=== PATIENT | female | born 1965 ===

== ENCOUNTER → 2018-07-24 | Outpatient (CLI) | payer SELFPAY | LOC: C.RADIC 09:23 ==

== ENCOUNTER → 2018-07-24 | Outpatient (CLI) | payer SELFPAY | LOC: C.RADIC 09:39 ==

== ENCOUNTER 2018-08-03 09:24 | Outpatient (CLI) | payer SELFPAY | END 2018-08-03 09:25 | disposition home or self-care (01) | LOC: C.CARD 09:24 | DX: R07.9 Chest pain, unspecified (principal) ==

== ENCOUNTER 2018-08-11 22:12 | Emergency (ER) | payer SELFPAY ==
[2018-08-11 22:12] VITALS: BMI 25.8
[2018-08-11 22:25] VITALS: O2SAT 99
--- NOTE | 2018-08-11 23:16 | C.PDOC ---
History Of Present Illness 53 year old female, whose past medical history includes hypertension, presents to the ED for evaluation of a mild headache which began today. Patient states she checked her blood pressure using home monitor and found it was elevated. Patient became concerned and took one 81mg tablet of Aspirin two hours prior to ED arrival. Patient states she underwent a normal cardiac workup, consisting of echocardiogram and stress test, in July 2018. Patient denies nausea, vomiting, extremity numbness/weakness. Time Seen by Provider: 08/11/18 22:56 Chief Complaint (Nursing): Headache History Per: Patient History/Exam Limitations: no limitations Onset/Duration Of Symptoms: Hrs Current Symptoms Are (Timing): Still Present Past Medical History Reviewed: Historical Data, Nursing Documentation, Vital Signs Vital Signs: Last Vital Signs Temp 97.5 F L 08/11/18 22:21 Pulse 71 08/11/18 22:21 Resp 22 08/11/18 22:21 BP 190/104 H 08/11/18 22:21 Pulse Ox 99 08/11/18 22:21 - Medical History PMH: HTN Denies: Chronic Kidney Disease Surgical History: Appendectomy Family History: States: Unknown Family Hx - Social History Hx Alcohol Use: No Hx Substance Use: No Review Of Systems Cardiovascular: Positive for: Other (elevated blood pressure ) Gastrointestinal: Negative for: Nausea, Vomiting Neurological: Positive for: Headache. Negative for: Weakness, Numbness Physical Exam - Physical Exam Appears: Non-toxic, No Acute Distress, Other (smiling, joking) Skin: Normal Color, Warm, Dry Head: Atraumatic, Normacephalic Eye(s): bilateral: Normal Inspection, PERRL, EOMI, Other (no photophobia) Oral Mucosa: Moist Neck: Normal ROM, Supple Chest: Symmetrical, No Deformity, No Tenderness Cardiovascular: Rhythm Regular, No Murmur Respiratory: Normal Breath Sounds, No Rales, No Rhonchi, No Wheezing Extremity: Normal ROM, Capillary Refill (less than 2 seconds ) Neurological/Psych: Oriented x3, Normal Speech, Normal Cognition ED Course And Treatment O2 Sat by Pulse Oximetry: 99 (on RA) Pulse Ox Interpretation: Normal Progress Note: EKG ordered and reviewed. Motrin PO and Norvasc PO given. Medical Decision Making Medical Decision Making: mild GOMEZ bp 150/90 on eval no cardiac issues normal card stress/echo 3/19 normal EKG defer repeat w/u < 2 weeks ok for opt f/u. Disposition Doctor Will See Patient In The: Office Counseled Patient/Family Regarding: Studies Performed, Diagnosis - Disposition Referrals: [facility] [Outside] [facility] [Outside] [facility] [Outside] [facility] [Outside] Disposition: HOME/ ROUTINE Disposition Time: 23:16 Condition: GOOD Additional Instructions: sigue jonathan [facility] para la pression jolly Sigue con la [facility] Recibio Amlodipina 5 mg y Ibuprofeno 600 mg po via oral Instructions: High Blood Pressure (DC) Forms: [facility] (Bulgarian) Print Language: YI - Clinical Impression Clinical Impression: Hypertension - Scribe Statement The provider has reviewed the documentation as recorded by the Scribe (Valeria jolley) Provider Attestation: All medical record entries made by the Scribe were at my direction and personally dictated by me. I have reviewed the chart and agree that the record accurately reflects my personal performance of the history, physical exam, medical decision making, and the department course for this patient. I have also personally directed, reviewed, and agree with the discharge instructions and disposition.
[2018-08-11 23:25] VITALS: BP 153/90; PULSE 68; RESP 18; TEMP 98.7
== END 2018-08-11 23:51 | disposition home or self-care (01) ==
LOC: C.ER 22:12
DX: I10 Essential (primary) hypertension (principal)

== ENCOUNTER 2018-08-14 08:54 | Outpatient (CLI) | payer SELFPAY | END 2018-08-14 08:55 | disposition home or self-care (01) | LOC: C.LAB 08:54 | DX: K76.0 Fatty (change of) liver, not elsewhere classified (principal); Z13.9 Encounter for screening, unspecified; I10 Essential (primary) hypertension; E55.9 Vitamin D deficiency, unspecified; M19.049 Primary osteoarthritis, unspecified hand ==

== ENCOUNTER 2018-08-28 08:59 | Outpatient (CLI) | payer SELFPAY | END 2018-08-28 09:00 | disposition home or self-care (01) | LOC: C.USIC 08:59 | DX: K76.0 Fatty (change of) liver, not elsewhere classified (principal) ==